=== PATIENT | male | born 1970 | race Hispanic/Latino ===

== ENCOUNTER 2018-01-11 14:45 | Emergency (ER) | payer OTHER ==
[~2018-01-11] VITALS: Ht 175.3 cm; Wt 91.6 kg
[~2018-01-11 14:45] MED LIST: ATORVASTATIN CA20 MG PO; LISINOPRIL10 MG PO; METFORMIN HCL1000 MG PO; PROTONIX40 MG PO; TASIGNA150 MG PO
[2018-01-11] MEDS ORDERED: PROMETHAZINE HC25 M1 PO (15:03)
[2018-01-11] MEDS ORDERED: CIPROFLOXACIN500 M1 PO (15:03)
[2018-01-11 16:01] LABS: BASOPHILS # (AUTO) 0.1 (0.0-0.1); BASOPHILS % 0.9 % (0.0-1.0); EOSINOPHILS # (AUTO) 0.1 (0.0-0.4); EOSINOPHILS % 2.3 % (0.0-6.0); HEMATOCRIT 41.2 % (38.2-49.6); HEMOGLOBIN 14.4 g/dL (14.0-18.0); LYMPHOCYTES # (AUTO) 0.8 (1.0-3.2); LYMPHOCYTES % 14.6 % (18.0-39.1); MEAN CORPUSCULAR VOLUME 94.5 fL (81-99); MONOCYTES # (AUTO) 0.8 (0.2-0.8); NEUTROPHILS % 68.7 % (38.7-80.0); PLATELET COUNT 269 x10e3/uL (140-360); RED BLOOD COUNT 4.36 x10e6/uL (4.3-5.7); RED CELL DISTRIBUTION WIDTH 13.2 % (11.7-14.4)
[2018-01-11 17:32] LABS: INR 0.89; PROTHROMBIN TIME 12.9 seconds (11.9-14.5)
[2018-01-11 17:33] LABS: PARTIAL THROMBOPLASTIN TIME 28.1 seconds (23.8-35.5)
[2018-01-11 17:42] LABS: ALANINE AMINOTRANSFERASE 134 IU/L (0-55); ALBUMIN 4.3 g/dL (3.5-5.0); ALBUMIN/GLOBULIN RATIO 1.4 (0.8-2.0); ALKALINE PHOSPHATASE 77 IU/L (40-150); ANION GAP 19.1 mmol/L (8-16); BLOOD UREA NITROGEN 19 mg/dL (7-26); BUN/CREATININE RATIO 16 (6-25); CALCIUM 9.4 mg/dL (8.4-10.2); CARBON DIOXIDE 16 mmol/L (22-29); CHLORIDE 109 mmol/L (98-107); CREATININE, SERUM 1.16 mg/dL (0.72-1.25); EST GLOMERULAR FILTRATION RATE > 60 ML/MIN (60-); GLUCOSE 97 mg/dL (74-118); LIPASE 28 U/L (8-78); POTASSIUM 4.1 mmol/L (3.5-5.1); SODIUM 140 mmol/L (136-145)
--- OUTSIDE RECORDS SUMMARY | 2018-01-12 14:23 | XMS REPORT ---
Author Author [facility] Address Unknown Phone Unavailable Care Team Providers Care [employer] Developer Name Role Phone Susan MUÑOZ Unavailable Unavailable Problems This patient has no known problems. Allergies, Adverse Reactions, Alerts This patient has no known allergies or adverse reactions. Medications This patient has no known medications. Encounters Start Date/Time End Date/Time Encounter Type Admission Type Attending [facility] Facility Care Department Encounter ID 2018-01-27 00:00:00 2018-01-27 00:00:00 Outpatient [facility] [id number] 2018-01-27 00:00:00 2018-01-27 00:00:00 Outpatient [facility] [id number] 2018-01-21 00:00:00 2018-01-21 00:00:00 Outpatient [facility] [id number] 2018-01-20 00:00:00 2018-01-20 00:00:00 Outpatient [facility] [id number] 2017-12-28 00:00:00 2017-12-28 00:00:00 Outpatient [facility] [id number] 2017-10-29 08:59:47 2017-10-29 08:59:47 Outpatient [facility] [id number] 2017-10-28 14:11:02 2017-10-28 14:11:02 Outpatient [facility] [id number] 2017-10-28 13:45:27 2017-10-28 13:45:27 Outpatient [facility] [id number] 2017-10-05 00:00:00 2017-10-05 00:00:00 Outpatient [facility] [id number] 2017-10-05 00:00:00 2017-10-05 00:00:00 Outpatient [facility] [id number] 2017-10-05 00:00:00 2017-10-05 00:00:00 Outpatient [facility] [id number] 2017-10-05 00:00:00 2017-10-05 00:00:00 Outpatient [facility] [id number] 2017-09-07 00:00:00 2017-09-07 00:00:00 Outpatient [facility] [id number] 2017-09-02 00:00:00 2017-09-02 00:00:00 Outpatient [facility] [id number] 2017-08-31 00:00:00 2017-08-31 00:00:00 Outpatient [facility] [id number] 2017-07-27 13:58:33 2017-07-27 13:58:33 Outpatient [facility] [id number] 2017-07-27 00:00:00 2017-07-27 00:00:00 Outpatient [facility] [id number] 2017-07-27 00:00:00 2017-07-27 00:00:00 Outpatient [facility] [id number] 2017-07-23 08:40:16 2017-07-23 08:40:16 Outpatient [facility] [id number] 2017-07-21 12:31:56 2017-07-21 12:31:56 Outpatient [facility] [id number] 2017-07-21 12:24:41 2017-07-21 12:24:41 Outpatient [facility] [id number] 2017-07-20 00:00:00 2017-07-20 00:00:00 Outpatient [facility] [id number] 2017-07-13 15:57:31 2017-07-13 15:57:31 Outpatient [facility] [id number] 2017-07-13 10:33:27 2017-07-13 10:33:27 Outpatient [facility] [id number] 2017-07-13 07:19:40 2017-07-13 07:19:40 Outpatient [facility] [id number] 2017-06-08 14:30:08 2017-06-08 14:30:08 Outpatient [facility] [id number] 2017-06-08 13:18:35 2017-06-08 13:18:35 Outpatient [facility] [id number] 2017-06-08 11:41:21 2017-06-08 11:41:21 Outpatient [facility] [id number] 2017-04-20 08:57:46 2017-04-20 08:57:46 Outpatient [facility] [id number] 2017-04-20 08:23:17 2017-04-20 08:23:17 Outpatient [facility] [id number] 2017-04-08 20:30:09 2017-04-08 20:30:09 Emergency [facility] [id number] 2017-04-08 13:11:02 2017-04-08 13:11:02 Emergency [facility] [id number] 2017-04-08 07:44:39 2017-04-08 07:44:39 Emergency [facility] [id number] Results Test Description Test Time Test Comments Text Results Atomic Results Result Comments CT BRAIN WO [facility] [address] [address] Patient Name: JODY BELCHER MR #: [id number] : 1970 Age/Sex: 46/M Req #: [id number] Adm Physician: Ordered by: ALEM REMY MD Report #: [id number] Location: ER Room/Bed: Procedure: [id number] CT/CT BRAIN WO Exam Date: 11/30/16 Exam Time: 1924 REPORT STATUS: Signed History: S LEFT SIDE FACIAL WEAKNESS Comparison studies: None Technique: Axial images were obtained from the skull base to the vertex. Coronal and sagittal reconstructions obtained from the axial data. Findings: Scalp/skull: No abnormalities. No fractures, blastic or lytic lesions. Extra-axial spaces: No masses. No fluid collections. Brain sulci: Appropriate for age. Ventricles: Normal in size and configuration. No hydrocephalus. Parenchyma: No abnormal densities. No masses, hemorrhage, acute or chronic cortical vascular insults. Sellar/suprasellar region: No abnormalities Craniocervical junction: Patent foramen magnum. No Chiari one malformation. IMPRESSION: No abnormalities . Signed by: DR Santi Villagran M.D. on 11/30/2016 8:30 PM Dictated By: SANTI SIU MD 29 Transcribed By: LUZ on 11/30/162029 COPY TO: ALEM REMY MD
[2018-01-13] MEDS ORDERED: CARAFATE1 GM/10 ML PO (12:02)
[2018-01-13] MEDS ORDERED: DEXILANT60 MG PO (12:17)
== END 2018-01-11 18:45 | disposition home or self-care (01) ==
LOC: ER 14:45
DX: R10.13 Epigastric pain (principal); I10 Essential (primary) hypertension; E11.9 Type 2 diabetes mellitus without complications; Z85.6 Personal history of leukemia
CPT/HCPCS: 36415; 80053; 83690; 85025; 85610; 85730; 86850; 86900; 99283

== ENCOUNTER → 2018-01-16 | Day surgery (SDC) | payer OTHER ==
[2018-01-13 12:12] LABS: BASOPHILS % 0.3 % (0.0-1.0); EOSINOPHILS # (AUTO) 0.1 (0.0-0.4); EOSINOPHILS % 1.5 % (0.0-6.0); HEMATOCRIT 43.8 % (38.2-49.6); HEMOGLOBIN 15.2 g/dL (14.0-18.0); LYMPHOCYTES # (AUTO) 0.8 (1.0-3.2); LYMPHOCYTES % 14.1 % (18.0-39.1); MEAN CORPUSCULAR HGB CONC 34.7 g/dL (31-35); MEAN CORPUSCULAR VOLUME 92.2 fL (81-99); MONOCYTES # (AUTO) 0.8 (0.2-0.8); MONOCYTES % 13.9 % (4.4-11.3); NEUTROPHILS # (AUTO) 4.1 (2.1-6.9); NEUTROPHILS % 69.5 % (38.7-80.0); PLATELET COUNT 274 x10e3/uL (140-360); RED BLOOD COUNT 4.75 x10e6/uL (4.3-5.7)
[~2018-01-16] MED LIST changes: +CARAFATE1 GM/10 ML PO; +CIPROFLOXACIN500 M1 PO; +DEXILANT60 MG PO; +FENTANYL CITRATE/PF 100MCG/2 ML INJ ONE; +KETAMINE HCL INJ 50 MG/ML 10 ML VIAL ONE; +LIDOCAINE HCL 2% LOCAL INJ 5 ML SDV VIAL INJ ONE; +MIDAZOLAM HCL 2 MG/2 ML VIAL ONE; +PROMETHAZINE HC25 M1 PO; +PROPOFOL IV EMULSION 10 MG/ML 50 ML VIAL ONE
--- NOTE | 2018-01-16 18:56 | Operative Report ---
DATE OF PROCEDURE: January 16, 2018 REFERRING PHYSICIAN: Dr. Archana Westbrook. PROCEDURE PERFORMED: Esophagogastroduodenoscopy with biopsies. INDICATIONS FOR EGD: Upper abdominal pain, worse postprandially, history of follicular lymphoma. MEDICATION: Patient was done under MAC. Please see anesthesiologist's note. PROCEDURE: With the patient in left lateral decubitus position, a flexible fiberoptic Olympus gastroscope was introduced into the esophagus under direct visualization without any difficulty. There was some patchy erythema noted in the distal esophagus. The scope was then advanced with ease into the stomach, and there was some minimal focal nodularity noted in the upper body of the stomach, and that was biopsied. Mucosa overlying the antrum revealed some patchy intense erythema and low grade to moderate edema, and biopsies were obtained and sent to stain for H. pylori. Pylorus appeared to be of normal contour and shape. It was intubated with ease, and the scope was advanced all the way to the second portion of the duodenum. The scope was then withdrawn slowly. Mucosa overlying the proximal second portion and the duodenal bulb appeared to be within normal limits. The scope was then withdrawn back into the stomach and retroflexed, and mucosa overlying the fundus and the cardia appeared to be within normal limits. The scope was then straightened out. The stomach was decompressed. Scope was subsequently withdrawn. Patient tolerated the procedure well. IMPRESSION 1. Distal esophagitis. 2. Minimal focal nodularity, upper body, biopsied. 3. Gastritis, biopsied. Biopsies sent to stain for Helicobacter pylori. PLAN: Follow up histology. Continue Dexilant 60 mg 1 p.o. q.a.m. a.c. Add Carafate 1 gram p.o. a.c. t.i.d. and q.h.s. Job#: [id number] [facility] cc:DR. ARCHANA WESTBROOK
== END | disposition home or self-care (01) ==
LOC: OR 13:29
PROVIDERS: ATTEND Internal Medicine Gastroenterology
DX: K21.0 Gastro-esophageal reflux disease with esophagitis (principal); K29.50 Unspecified chronic gastritis without bleeding; K31.7 Polyp of stomach and duodenum; C82.90 Follicular lymphoma, unspecified, unspecified site; R14.2 Eructation; I25.10 Atherosclerotic heart disease of native coronary artery without angina pectoris; I25.2 Old myocardial infarction; E11.22 Type 2 diabetes mellitus with diabetic chronic kidney disease; I12.9 Hypertensive chronic kidney disease with stage 1 through stage 4 chronic kidney disease, or unspecified chronic kidney disease; N18.9 Chronic kidney disease, unspecified; R10.13 Epigastric pain; R11.0 Nausea; Z79.84 Long term (current) use of oral hypoglycemic drugs; Z01.810 Encounter for preprocedural cardiovascular examination; Z01.812 Encounter for preprocedural laboratory examination
CPT/HCPCS: 36415 ×2; 43239; 82948; 85025; 93005; J2001; J2250

== ENCOUNTER 2018-05-19 11:11 | Inpatient (IN) | payer OTHER ==
[~2018-05-19] VITALS: Ht 175.3 cm; Wt 89.4 kg
[~2018-05-19 11:11] MED LIST changes: -FENTANYL CITRATE/PF 100MCG/2 ML INJ ONE; -KETAMINE HCL INJ 50 MG/ML 10 ML VIAL ONE; -LIDOCAINE HCL 2% LOCAL INJ 5 ML SDV VIAL INJ ONE; -MIDAZOLAM HCL 2 MG/2 ML VIAL ONE; -PROPOFOL IV EMULSION 10 MG/ML 50 ML VIAL ONE
[2018-05-19] MEDS ORDERED: SODIUM CHLORIDE 0.9% 1000ML 1,000 ML IV STA (11:20)
[2018-05-19] MEDS ORDERED: MORPHINE SULFATE INJ 4 MG/ML INJ 1ML IV STA (11:20)
[2018-05-19] MEDS ORDERED: ONDANSETRON HCL INJ 2MG/ML 2ML 2 MG/ML VIAL IV STA (11:20)
[2018-05-19 12:25] LABS: BASOPHILS # (AUTO) 0.1 (0.0-0.1); BASOPHILS % 0.5 % (0.0-1.0); EOSINOPHILS # (AUTO) 0.1 (0.0-0.4); EOSINOPHILS % 1.3 % (0.0-6.0); HEMATOCRIT 39.3 % (38.2-49.6); HEMOGLOBIN 13.7 g/dL (14.0-18.0); LYMPHOCYTES # (AUTO) 0.9 (1.0-3.2); MEAN CORPUSCULAR HEMOGLOBIN 31.4 pg (28-32); MEAN CORPUSCULAR HGB CONC 34.9 g/dL (31-35); MEAN CORPUSCULAR VOLUME 90.1 fL (81-99); MONOCYTES % 9.8 % (4.4-11.3); NEUTROPHILS # (AUTO) 7.8 (2.1-6.9); NEUTROPHILS % 78.8 % (38.7-80.0); PLATELET COUNT 342 x10e3/uL (140-360); RED BLOOD COUNT 4.36 x10e6/uL (4.3-5.7); RED CELL DISTRIBUTION WIDTH 12.6 % (11.7-14.4)
--- NOTE | 2018-05-19 12:30 | NUR ---
RADIOLOGY AT BEDSIDE FOR CXR AT THIS TIME.
[2018-05-19 12:37] LABS: INR 0.87; PROTHROMBIN TIME 12.7 seconds (11.9-14.5)
[2018-05-19 12:38] LABS: PARTIAL THROMBOPLASTIN TIME 32.8 seconds (23.8-35.5)
[2018-05-19 12:42] LABS: CLARITY,URINE SL CLOUDY (CLEAR); COLOR,URINE AMBER (YELLOW)
[2018-05-19 12:43] LABS: BILIRUBIN,URINE NEGATIVE (NEGATIVE); KETONES,URINE TRACE (NEGATIVE); LEUKOCYTE ESTERASE ,URINE NEGATIVE (NEGATIVE); NITRITE,URINE NEGATIVE (NEGATIVE); PROTEIN,URINE DIPSTICK 1+ (NEGATIVE); URINE UROBILINOGEN 0.2 mg/dL (0.2 - 1)
[2018-05-19 12:44] LABS: ALBUMIN/GLOBULIN RATIO 1.1 (0.8-2.0); ANION GAP 16.1 mmol/L (8-16); CALCIUM 9.8 mg/dL (8.4-10.2); CREATININE, SERUM 1.47 mg/dL (0.72-1.25); POTASSIUM 4.1 mmol/L (3.5-5.1)
[2018-05-19 12:48] LABS: RBC,URINE 0-5 /HPF (0-5)
[2018-05-19 12:49] LABS: BACTERIA,URINE RARE /HPF; EPITHELIAL CELLS,URINE RARE /LPF; MUCUS,URINE FEW (RARE)
[2018-05-19 12:51] LABS: CREATINE KINASE MB 1.4 ng/mL (0-5.0)
--- NOTE | 2018-05-19 13:12 | Diagnostic Imaging Report ---
EXAM: CHEST SINGLE (PORTABLE), AP Portable DATE: 05/19/2018 Time stamp on exam: 12:29 PM INDICATION: Pain COMPARISON: None FINDINGS: LINES/TUBES: None LUNGS: No consolidations or edema. PLEURA: No effusions or pneumothorax. HEART AND MEDIASTINUM: Heart is prominent without evidence of decompensation. Elevated right hemidiaphragm. BONES AND SOFT TISSUES: No acute findings. IMPRESSION: 1. Cardiac enlargement without evidence of decompensation. 2. Elevated right hemidiaphragm. Signed by: Dr. Simeon Bradford DO on 05/19/2018 1:09 PM
--- NOTE | 2018-05-19 15:00 | NUR ---
Pt disconnected from monitors to go to BR. Steady gait to BR at this time.
--- NOTE | 2018-05-19 15:11 | Diagnostic Imaging Report ---
EXAM: CT ABDOMEN AND PELVIS with IV CONTRAST DATE: 05/19/2018 Time stamp on Exam: 1:43 PM INDICATION: Abdominal epigastric pain; history of lymphoma/leukemia COMPARISON: None TECHNIQUE: The abdomen and pelvis were scanned using a multidetector helical scanner. Coronal and sagittal reformations were obtained. Low-dose protocol performed. IV Contrast: 100 cc of Isovue 370 Oral Contrast: Water Radiation Dose: Total DLP 678.72 mGy*cm Estimated effective dose: DLP x 0.015 x size factor FINDINGS: LOWER THORAX: No consolidations LIVER: Fatty infiltration of the liver without focal mass. BILIARY: The gallbladder is unremarkable. No ductal dilatation. SPLEEN: No masses PANCREAS: Mild stranding around the pancreatic head and body. ADRENALS: No nodules KIDNEYS: Symmetric perfusion. No enhancing masses. No hydronephrosis. GI TRACT: No distention, wall thickening or evidence of obstruction. Sigmoid colon diverticula without evidence of diverticulitis. VESSELS: Unremarkable PERITONEUM/RETROPERITONEUM: There is mesenteric fat stranding inferior to the transverse colon. LYMPH NODES: Left periaortic adenopathy measures 4.2 x 2.1 cm situated below the level of the left kidney. There is also some periaortic thickening in the aortocaval interval measuring 1.7 cm. Adenopathy appears to surround the proximal portion of the inferior mesenteric artery. Separate lymph node measuring 12 mm lies anterior to the IVC. There is also a lymph node measuring 1.2 cm situated superior to the periaortic left-sided lymphadenopathy between the aorta and the lower portion of the left kidney. REPRODUCTIVE ORGANS: Unremarkable BLADDER: Unremarkable SOFT TISSUES: Unremarkable BONES: Postoperative changes with a right-sided hemilaminectomy at L4 and L5. The space narrowing at L5-S1. IMPRESSION: 1. Stranding around the pancreatic body and head may reflect early changes of pancreatitis-please correlate with laboratory parameters. 2. Diffuse mesenteric stranding is nonspecific but can be seen in lymphoma. 3. Periaortic and retroperitoneal lymphadenopathy suspicious for recurrence of lymphoma. 4. Fatty infiltration of the liver. Signed by: Dr. Simeon Bradford DO on 05/19/2018 3:07 PM
[2018-05-19] MEDS ORDERED: IOPAMIDOL 370 MG/ML 200 ML INFUS..BTL INJ ONE (15:36)
[2018-05-19] MEDS ORDERED: SODIUM CHLORIDE 0.9% 50ML 50 ML ONE (15:36)
[2018-05-19] MEDS ORDERED: SODIUM CHLORIDE 0.9% 1000ML 1,000 ML IV SCH (15:45)
[2018-05-19] MEDS ORDERED: ONDANSETRON HCL INJ 2MG/ML 2ML 2 MG/ML VIAL IV PRN (15:45)
[2018-05-19] MEDS ORDERED: HYDROMORPHONE 1MG/1ML INJ IV PRN (15:45)
[2018-05-19] MEDS ORDERED: DEXTROSE 50% SYRINGE 50 ML IV PRN (15:45)
[2018-05-19] MEDS ORDERED: HYDROMORPHONE 1MG/1ML INJ IV STA (15:50)
[2018-05-19] MEDS ORDERED: PROMETHAZINE HCL 25 MG TAB PO PRN (16:15)
[2018-05-19] MEDS ORDERED: ACETAMINOPHEN 325 MG TAB PO PRN (16:15)
[2018-05-19] MEDS ORDERED: HYDROMORPHONE 2MG/ML 2 MG/ML ML IV ONE (16:15)
[2018-05-19] MEDS ORDERED: DEXTROSE 5%/0.9% SOD CHL 1,000 ML IV SCH (16:30)
[2018-05-19] MEDS ORDERED: HYDRALAZINE HCL 20 MG/ML VIAL IV PRN (16:30)
[2018-05-19] MEDS: INSULIN REGULAR, HUMAN 100 UNIT/1 ML 3ML VIAL SQ SCH ×2 (18:03→21:00)
[2018-05-19] MEDS ORDERED: SUCRALFATE1 GM PO (18:19)
--- NOTE | 2018-05-19 19:08 | NUR ---
RECD PT FROM ER VIA W/C AAOX3,IV INFUSING TO LT AC 20 GAUGE,DENIES PAIN,CALL SALINAS IN REACH,HOB ELEVATED.
[2018-05-19 20:00] VITALS: BP 146/92
--- NOTE | 2018-05-19 20:55 | NUR ---
RECEIVE DPT IN BED AOX3 .[place] SPEAKING .RESPIRATIONS ARE EVEN AND UNLABORED .ASSESSMENT DONE FAMILY AT THE BEDSIDE .DENIES PAIN .CALL LIGHT WITH IN REACH .CONTINUE TO MONITOR
[2018-05-19] MEDS: HYDROMORPHONE 2MG/ML 2 MG/ML ML IV PRN (22:30)
[2018-05-19 22:56] VITALS: BP 146/92
[2018-05-20] VITALS (9 sets, daily range): BP systolic 119–146; BP diastolic 76–93
--- NOTE | 2018-05-20 00:46 | History and Physical ---
HISTORY OF PRESENT ILLNESS: A 48-year-old male with past medical history positive for hypertension, diabetes, recently diagnosed with gastritis by endoscopy, came to the hospital complaining of abdominal pain. He was found to have acute pancreatitis. REVIEW OF SYSTEMS: CARDIOVASCULAR: No chest pain or palpitation. RESPIRATORY: No shortness of breath. No cough. GASTROINTESTINAL: The patient had epigastric pain radiated to the flank. GENITOURINARY: No frequency. No dysuria. ALLERGIES: HE IS NOT ALLERGIC TO ANY MEDICATIONS. SOCIAL HISTORY: He denies smoking or drinking. PAST MEDICAL HISTORY: Hypertension, diabetes, and gastritis. PHYSICAL EXAMINATION: HEART: Showed regular rhythm. No murmur or added sound. LUNGS: Clear bilaterally. ABDOMEN: Soft. Minimal epigastric and this upper quadrant tenderness. EXTREMITIES: Show no evidence of cyanosis or hematoma. VITAL SIGNS: Blood pressure 148/86, temperature , heart rate 98 per minute, respiratory rate 18 per minute, and oxygen saturation 100%. LABORATORY DATA: On blood work, we have CMP with sodium of 134, potassium 4.1, chloride 102, CO2 of 20, anion gap 16.1, BUN 19, creatinine 1.47, GFR of 51, glucose 125, and calcium 9.8. Total bilirubin 1.1, AST 29, and ALT is elevated at 66. Creatinine kinase 68 . Troponin 0.006. Total protein is 7.5. Albumin 4.0, globulin 3.5, amylase 284, and lipase is 577. On CBC; white blood count is 9.95, hemoglobin is 13.7, hematocrit 39.3, and platelet count 642,000. On the coagulation profile; PT is 12.7, INR 0.87, and PTT 32.8. Urine showed marivel color, clarity is cloudy, specific gravity 1.030, total protein 1+, glucose 1+, ketones trace, and blood trace. On the CT of the abdomen and pelvis, the final report on CT of the abdomen is trending around the pancreatic body and here may reflect early changes of pancreatitis, which correlates with laboratory parameters. Diffuse mesenteric stranding is nonspecific where it can be seen in lymphoma. Periaortic and retroperitoneal lymphadenopathy suspicion for recurrence of lymphoma or fatty infiltration of the liver. On the chest x-ray, cardiac enlargement without . IMPRESSION: 1. Acute pancreatitis. 2. Elevated LFTs. 3. Uncontrolled diabetes mellitus type 2 with chronic renal insufficiency. 4. Gastritis. 5. . PLAN OF TREATMENT: Normal saline at 125 mL an hour. Continue Tylenol 325 mg q.4 hours as needed for pain or fever as needed for severe pain. Continue Protonix 40 mg daily. Continue Zofran 4 mg every 4 hours as needed for nausea. Continue to monitoring the sugar a.c. and h.s. Dr. Caputo for the lymphadenopathy of the abdomen. I am going to repeat CMP, lipase, and CBC tomorrow. Diet going to be n.p.o. Continue MD JAKOB Huff/ZANE /[id number]
[2018-05-20] MEDS: DEXTROSE 5%/0.9% SOD CHL 1,000 ML IV SCH ×6 (01:33→18:48)
--- NOTE | 2018-05-20 03:32 | Consultation ---
DATE OF CONSULTATION: 05/19/2018 CONSULTING PHYSICIAN: Paulino Caputo MD, Hematology-Oncology Service. REASON FOR CONSULTATION: Evaluation and management of patient with history of lymphoma, admitted due to abdominal pain. HISTORY OF PRESENT ILLNESS: Mr. Daily is a very pleasant 48-year-old gentleman with multiple medical problems, including known history of diabetes mellitus, hypertension, hyperlipidemia, history of GI bleed, and history of chronic myelocytic leukemia as well as follicular lymphoma, presented to the Emergency Department due to epigastric pain. The patient underwent workup, including laboratory data revealing markedly elevated lipase and amylase, suspected of acute pancreatitis. Laboratory workup also revealed acute renal insufficiency with an elevated creatinine of 1.4. CT scan was performed revealing stranding around the pancreatic body and head, reflecting early changes of pancreatitis. CT also demonstrated diffuse mesenteric stranding as well as periaortic and retroperitoneal lymphadenopathy suspicious for recurrence of lymphoma. After admission to the inpatient floor, Hematology-Oncology has been consulted to assist with the management. Presently, the patient is lying comfortably, not in acute distress, breathing normally, still having mild discomfort in the abdomen. He does not speak Gibraltarian, so most of the history is obtained with the help of telephonic branch billing payroll clerk as well as calling his . PAST MEDICAL HISTORY: 1. Chronic myelogenous leukemia, diagnosed in 2006, presently on Tasigna. 2. Follicular lymphoma, status post systemic chemotherapy with R-CHOP and presently on maintenance rituximab. 3. Hypertension. 4. Hyperlipidemia. 5. Diabetes mellitus. 6. History of GI bleed. PAST SURGICAL HISTORY: 1. Bone marrow aspiration biopsy. 2. Port placement. SOCIAL HISTORY: He denies history of smoking, alcohol use, or illicit drug use. FAMILY HISTORY: Noncontributory. ALLERGIES: NO KNOWN DRUG ALLERGIES. CURRENT MEDICATIONS: Reviewed and as per electronic medical record. REVIEW OF SYSTEMS: A 14-point review of systems is negative, except as mentioned in history of present illness. PHYSICAL EXAMINATION: VITAL SIGNS: Reviewed and as per electronic medical record. HEENT: PERRLA. Extraocular movements intact. Head is atraumatic and normocephalic. NECK: Supple. CVS: S1, S2 audible. RESPIRATORY: Clear. Bilateral air entry. ABDOMEN: Soft. Positive bowel sounds. EXTREMITIES: Move NEUROLOGIC: The patient is alert, awake, and poor historian. LABORATORY DATA: White blood cell count of 9.9, hemoglobin 13.7, hematocrit 39.3, and platelets 342. BUN 19, creatinine 1.4, amylase 284, and lipase 577. RADIOGRAPHIC DATA: Reviewed and as per EMR. ASSESSMENT AND PLAN: Mr. Daily is a very pleasant 48-year-old gentleman with complicated past medical history, including known history of hypertension, diabetes mellitus, hyperlipidemia, and known diagnosis of chronic myelogenous leukemia as well as follicular lymphoma, presently on maintenance rituximab as well as Tasigna. He has been presented to the Emergency Department due to epigastric pain and subsequently diagnosed with acute pancreatitis. Hematology-Oncology has been consulted due to concern of recurrence of lymphoma. I have reviewed the record and discussed at length with the patient and his about his current disease status with the help of telephonic interpretation. Overall from Hematology-Oncology standpoint, it appears that the patient is well diagnosed with chronic myelogenous leukemia and presently, his count has been stable while he is on Tasigna. He also was diagnosed with follicular lymphoma with intra-abdominal lymphadenopathy, subsequently treated with R-CHOP regimen followed by maintenance rituximab, which he has been receiving on every 3-month basis. At this point from Hematology-Oncology standpoint, the patient is stable. Lymphadenopathy in the abdomen could be recurrent, but no scan available to compare. Recommendation will be to continue treatment for the pancreatitis and epigastric pain. Once symptoms resolve, he probably will need outpatient followup and PET-CT scan. 1. Epigastric pain/pancreatitis: IV hydration, bowel rest, and supportive care. 2. Chronic myelogenous leukemia: The patient has been on Tasigna; however, we would recommend to hold the treatment for now. 3. Follicular lymphoma/non-Hodgkin lymphoma: The patient has been treated with R-CHOP and presently on rituximab therapy. At this point, recommendation would be to closely monitor. No immediate hematologic intervention needed. The patient requires re-staging PET-CT scan in an outpatient setting. Thank you Dr. Wray for the consult. I will continue to be available. Please call with question. Paulino Caputo MD IJ/MODL /[id number] cc: MD Matthieu Huff MD [facility]
[2018-05-20 06:07] LABS: BASOPHILS % 0.3 % (0.0-1.0); EOSINOPHILS # (AUTO) 0.2 (0.0-0.4); EOSINOPHILS % 2.4 % (0.0-6.0); HEMATOCRIT 36.6 % (38.2-49.6); HEMOGLOBIN 12.5 g/dL (14.0-18.0); LYMPHOCYTES # (AUTO) 0.5 (1.0-3.2); LYMPHOCYTES % 6.7 % (18.0-39.1); MEAN CORPUSCULAR HEMOGLOBIN 31.4 pg (28-32); MEAN CORPUSCULAR HGB CONC 34.2 g/dL (31-35); MONOCYTES % 14.8 % (4.4-11.3); NEUTROPHILS # (AUTO) 5.2 (2.1-6.9); NEUTROPHILS % 75.1 % (38.7-80.0); PLATELET COUNT 299 x10e3/uL (140-360); RED BLOOD COUNT 3.98 x10e6/uL (4.3-5.7); RED CELL DISTRIBUTION WIDTH 12.6 % (11.7-14.4)
[2018-05-20 06:43] LABS: ALANINE AMINOTRANSFERASE 52 IU/L (0-55); ALBUMIN 3.3 g/dL (3.5-5.0); ALBUMIN/GLOBULIN RATIO 0.9 (0.8-2.0); ALKALINE PHOSPHATASE 55 IU/L (40-150); AMYLASE 113 U/L (25-125); ANION GAP 10.7 mmol/L (8-16); BLOOD UREA NITROGEN 12 mg/dL (7-26); BUN/CREATININE RATIO 11 (6-25); CALCIUM 8.4 mg/dL (8.4-10.2); CARBON DIOXIDE 22 mmol/L (22-29); CHLORIDE 104 mmol/L (98-107); CREATININE, SERUM 1.13 mg/dL (0.72-1.25); EST GLOMERULAR FILTRATION RATE > 60 ML/MIN (60-); GLUCOSE 141 mg/dL (74-118); LIPASE 208 U/L (8-78); POTASSIUM 3.7 mmol/L (3.5-5.1); SODIUM 133 mmol/L (136-145)
--- NOTE | 2018-05-20 06:43 | NUR ---
PT RESTING .C/O PAIN AND GIVEN ORDERED PAIN MEDICATION.CALL LIGHT WITH IN REACH .CONTINUE TO MONITOR
--- NOTE | 2018-05-20 07:20 | NUR ---
REPORT GIVEN TO THE ONCOMING NURSE
[2018-05-20] MEDS: INSULIN REGULAR, HUMAN 100 UNIT/1 ML 3ML VIAL SQ SCH ×4 (07:30→21:00)
--- NOTE | 2018-05-20 07:49 | NUR ---
Patient has fever of 100.4. No administration of Tylenol due to parameters.
[2018-05-20] MEDS: PANTOPRAZOLE 40 MG 10ML VIAL IV SCH (08:49)
[2018-05-20] MEDS: HYDROMORPHONE 2MG/ML 2 MG/ML ML IV PRN ×3 (08:49→23:42)
[2018-05-20] MEDS ORDERED: PANTOPRAZOLE SOD 40 MG TABEC PO SCH (09:00)
--- NOTE | 2018-05-20 14:53 | Progress Note ---
DATE: 05/20/2018 ADDENDUM The patient was diagnosed with CML and follicular lymphoma. Dr. Caputo was consulted for Hematology who has seen the patient. He will have a workup as an outpatient. MD JAKOB Huff/ZANE /[id number]
--- NOTE | 2018-05-20 16:18 | Progress Note ---
DATE: 05/20/2018 Internal Medicine Progress Note SUBJECTIVE: The patient is doing better. PHYSICAL EXAMINATION: VITAL SIGNS: Blood pressure 142/89, temperature 100.4, heart rate 86 per minute, respiratory rate 18 per minute, oxygen saturation 98%. HEART: Showed regular rhythm. No murmur or added sound. LUNGS: Clear bilaterally. ABDOMEN: Soft. Nontender no visceromegaly. Bowel sounds are decreased. LABORATORY DATA: On BMP, sodium 133, potassium 3.7, chloride 104, CO2 22, BUN 12, creatinine 1.13, glucose 141. On CBC, white blood count 6.97, hemoglobin 12.5, hematocrit 36.6, platelet count . PT 12.7, INR 0.87, and PTT 32.8. AST 26, ALT 62, total bilirubin 1.1, alkaline phosphatase 55. The last lipase is 208, which lower than when he came. FINAL IMPRESSION: 1. Acute pancreatitis. 2. Elevated liver function tests. 3. Uncontrolled diabetes mellitus, type 2. 4. . 5. Hypertension with chronic renal insufficiency. PLAN OF TREATMENT: Continue n.p.o. status, continue IV fluids with D5 normal saline at 250 mL an hour. Continue Zofran 4 mg q.4 hours as needed. Monitor blood sugar q.6 hours. Tylenol 325 mg q.4 hours as needed, Dilaudid 1 mg IV q.4 hours as needed, mg IV q.4 hours as needed. Protonix 40 mg IV daily. is on the case from Gastroenterology. We are going to repeat CMP and lipase level tomorrow. Continue n.p.o. status . BUN and creatinine have improved significantly indicating that most likely the patient might have more or acute renal insufficiency. MD JAKOB Huff/MELODYL /[id number]
--- NOTE | 2018-05-20 19:46 | NUR ---
RECEIVED PT IN BED AOX3 .NO ACUTE DISTRESS NOTED NS IS RUNNING AT 250 ML/HR CALL LIGHT WITH IN REACH .CONTINUE TO MONITOR
[2018-05-21] VITALS (8 sets, daily range): BP systolic 114–137; BP diastolic 66–84
[2018-05-21] MEDS: DEXTROSE 5%/0.9% SOD CHL 1,000 ML IV SCH ×6 (00:45→22:16)
--- NOTE | 2018-05-21 05:24 | NUR ---
PT RESTING .NS IS GOING AT 250MLS/HR.FAMILY AT THE BEDSIDE .CALL LIGHT WITH IN REACH .CONTINUE TO MONITOR
[2018-05-21 06:38] LABS: ALANINE AMINOTRANSFERASE 47 IU/L (0-55); ALBUMIN/GLOBULIN RATIO 0.9 (0.8-2.0); ALKALINE PHOSPHATASE 58 IU/L (40-150); ANION GAP 10.7 mmol/L (8-16); BLOOD UREA NITROGEN 7 mg/dL (7-26); BUN/CREATININE RATIO 7 (6-25); CALCIUM 7.8 mg/dL (8.4-10.2); CARBON DIOXIDE 21 mmol/L (22-29); CHLORIDE 108 mmol/L (98-107); CREATININE, SERUM 1.04 mg/dL (0.72-1.25); EST GLOMERULAR FILTRATION RATE > 60 ML/MIN (60-); GLUCOSE 133 mg/dL (74-118); POTASSIUM 3.7 mmol/L (3.5-5.1); SODIUM 136 mmol/L (136-145)
--- NOTE | 2018-05-21 07:02 | NUR ---
RECEIVED PATIENT RESTING IN BED. RESPIRATIONS EVEN AND UNLABORED. NO ACUTE DISTRESS NOTED. CALL LIGHT WITHIN REACH. BED IN THE LOWEST POSITION.
--- NOTE | 2018-05-21 07:19 | NUR ---
REPORT GIVEN TOT HE ON COMING NURSE
[2018-05-21] MEDS: INSULIN REGULAR, HUMAN 100 UNIT/1 ML 3ML VIAL SQ SCH ×4 (07:30→20:10)
[2018-05-21] MEDS: HYDROMORPHONE 2MG/ML 2 MG/ML ML IV PRN ×3 (07:55→22:21)
[2018-05-21] MEDS: PANTOPRAZOLE 40 MG 10ML VIAL IV SCH (08:00)
--- NOTE | 2018-05-21 15:49 | Progress Note ---
DATE: 05/21/2018 Internal Medicine Progress Note SUBJECTIVE: The patient is doing well. PHYSICAL EXAMINATION: VITAL SIGNS: Blood pressure 129/80, temperature 99 degrees, heart rate 87 per minute, respiratory rate is 19 per minute, oxygen saturation 95%. HEART: Showed regular rhythm. No murmur or added sound. LUNGS: Clear bilaterally. ABDOMEN: Soft. Nontender. No distention. No visceromegaly. EXTREMITIES: Show no edema, cyanosis or hematoma. LABORATORY DATA: BMP with a sodium of 136, potassium of 3.7, chloride 108, CO2 of 21, BUN 7, creatinine 1.04, glucose 133. On the CBC, white blood count 6.97, hemoglobin 12.5, hematocrit 36.6, and platelet count 299,000. PT 12.0, INR 0.87, PTT 32.8. AST 25, ALT 47, total bilirubin 0.9, alkaline phosphatase 58. FINAL IMPRESSION: 1. Acute pancreatitis. 2. Elevated liver function tests. 3. Uncontrolled diabetes mellitus type 2 with renal insufficiency. 4. . 5. Acute renal failure. PLAN OF TREATMENT: Continue n.p.o. Status to see if the lipase is still elevated. Continue IV D5 normal saline at 250 mL and hour. Continue Zofran 4 mg q.4 hours as needed. Continue to monitor blood sugar q.6 hours. Dilaudid 1 mg IV q.4 hours as needed, Tylenol 325 mg q.4 hours as needed. Hydralazine 10 mg IV q.4 hours as needed for hypertension. Protonix 40 mg IV daily. We are going to do another CMP and lipase level tomorrow. Once the lipase is back to normal, the patient can start eating. The last lipase was 103, which is a significant improvement from before, but still elevated. Tentative diet tomorrow as long as the lipase will be covering for me this weekend. MD JAKOB Huff/ZANE /[id number]
--- NOTE | 2018-05-21 17:00 | NUR ---
Nutrition Screen Note RD Recommendation for Physician: -Rec advancing to ADA/ low fat diet as medically appropriate -RD provided education on low fat diet on 05/21. Plan of Care: RD following, monitoring for tolerance and adequacy, diet education Nutrition reason for involvement: Diagnosis Primary Diagnose(s): 1. Acute pancreatitis. 2. Elevated liver function tests. 3. Uncontrolled diabetes mellitus type 2 with renal insufficiency. PMH: DM, HTN Ht: 69in Wt: 197.38lb BMI: 29.1kg/m2 IBW: 160lb RD Assessment: (05/21) Chart reviewed. Labs and meds reviewed. 48yo M, who was admitted for abdominal pain. Lipase has gone down to 103. Visited pt in the room. Pt doesnt speak Tunisian; presented on bedside to translate. Per , pt has had poor PO intake and ~3lbs weight loss for 2 weeks. No physical signs of fat/muscle loss upon NFPA. Pt denied any nausea or vomiting. No chewing or swallowing difficulty noted. LBM 2/20. Currently on IVF, pain management and bowel rest. Pt reported feeling hungry and eager to eat. Anticipate pt able to meet nutritional need through po intake when diet is advanced. Will cont to monitor. Please consult as needed. Current Diet: NPO Malnutrition Evaluation (05/21/2018) The patient does not meet criteria for a specified degree of malnutrition at this time. Will re-evaluate at follow-up as appropriate. Diet Education Needs Assessment: Diet education indicated, pt and agreeable. Learner(s): pt and Time spent: 25mins Barriers: No barriers identified. Cultural/Language Modifications: Only speaks Tunisian. Micronesian version of handout was given. Readiness: Acceptance Method: Handouts, explanation Topics: Pancreatitis nutrition therapy Understanding/Compliance: Expect good understanding/compliance from pt. Will benefit from reinforcement. All questions have been answered. Nutrition Care Level: low Signed: Taylor Ascencio, MS, RD, LD
--- NOTE | 2018-05-21 19:23 | NUR ---
REPORT GIVEN TO ONCOMING NURSE, WALKING ROUNDS DONE. PATIENT IS RESTING IN BED. NO ACUTE DISTRESS NOTED. AT BEDSIDE. CALL LIGHT WITHIN REACH. BED IN THE LOWEST POSITION.
--- NOTE | 2018-05-21 19:25 | NUR ---
PT IS RESTING IN BED. NO RESPIRATORY DISTRESS NOTED. BED IN THE LOWEST POSITION, LOCKED, AND CALL LIGHT WITHIN REACH. WILL CONTINUE TO MONITOR.
[2018-05-22] VITALS (9 sets, daily range): BP systolic 117–130; BP diastolic 68–84
[2018-05-22] MEDS: DEXTROSE 5%/0.9% SOD CHL 1,000 ML IV SCH ×3 (02:16→10:43)
[2018-05-22 06:32] LABS: ALANINE AMINOTRANSFERASE 51 IU/L (0-55); ALBUMIN 2.9 g/dL (3.5-5.0); ALKALINE PHOSPHATASE 52 IU/L (40-150); ANION GAP 9.6 mmol/L (8-16); BLOOD UREA NITROGEN 5 mg/dL (7-26); BUN/CREATININE RATIO 5 (6-25); CALCIUM 7.8 mg/dL (8.4-10.2); CARBON DIOXIDE 23 mmol/L (22-29); CHLORIDE 109 mmol/L (98-107); CREATININE, SERUM 1.04 mg/dL (0.72-1.25); EST GLOMERULAR FILTRATION RATE > 60 ML/MIN (60-); GLUCOSE 136 mg/dL (74-118); POTASSIUM 3.6 mmol/L (3.5-5.1); SODIUM 138 mmol/L (136-145)
--- NOTE | 2018-05-22 07:08 | NUR ---
RECEIVED PATIENT RESTING IN BED. NO ACUTE DISTRESS NOTED. AT BEDSIDE. CALL LIGHT WITHIN REACH. BED IN THE LOWEST POSITION.
[2018-05-22] MEDS: INSULIN REGULAR, HUMAN 100 UNIT/1 ML 3ML VIAL SQ SCH ×4 (07:30→21:00)
[2018-05-22] MEDS: PANTOPRAZOLE 40 MG 10ML VIAL IV SCH (08:32)
--- NOTE | 2018-05-22 19:22 | NUR ---
REPORT GIVEN TO ONCOMING NURSE, WALKING ROUNDS DONE. PATIENT IS RESTING IN BED. RESPIRATIONS EVEN AND UNLABORED, NO ACUTE DISTRESS NOTED. DENIES PAIN OR DISCOMFORT AT THIS TIME. AT BEDSIDE. CALL LIGHT WITHIN REACH. BED IN THE LOWEST POSITION.
[2018-05-23] VITALS: BP 114/59
[2018-05-23 04:00] VITALS: BP 119/57
[2018-05-23 05:35] LABS: BASOPHILS # (AUTO) 0.1 (0.0-0.1); BASOPHILS % 1.1 % (0.0-1.0); EOSINOPHILS # (AUTO) 0.2 (0.0-0.4); HEMATOCRIT 36.7 % (38.2-49.6); HEMOGLOBIN 12.8 g/dL (14.0-18.0); LYMPHOCYTES # (AUTO) 0.9 (1.0-3.2); MEAN CORPUSCULAR HEMOGLOBIN 31.8 pg (28-32); MEAN CORPUSCULAR HGB CONC 34.9 g/dL (31-35); MEAN CORPUSCULAR VOLUME 91.3 fL (81-99); MONOCYTES # (AUTO) 0.7 (0.2-0.8); MONOCYTES % 12.9 % (4.4-11.3); NEUTROPHILS # (AUTO) 3.8 (2.1-6.9); NEUTROPHILS % 66.8 % (38.7-80.0); PLATELET COUNT 320 x10e3/uL (140-360); RED BLOOD COUNT 4.02 x10e6/uL (4.3-5.7); RED CELL DISTRIBUTION WIDTH 12.3 % (11.7-14.4)
[2018-05-23 06:12] LABS: ALANINE AMINOTRANSFERASE 62 IU/L (0-55); ALBUMIN 3.3 g/dL (3.5-5.0); ALKALINE PHOSPHATASE 60 IU/L (40-150); AMYLASE 55 U/L (25-125); ANION GAP 11.9 mmol/L (8-16); BLOOD UREA NITROGEN 6 mg/dL (7-26); BUN/CREATININE RATIO 5 (6-25); CALCIUM 8.6 mg/dL (8.4-10.2); CARBON DIOXIDE 22 mmol/L (22-29); CHLORIDE 109 mmol/L (98-107); CREATININE, SERUM 1.17 mg/dL (0.72-1.25); EST GLOMERULAR FILTRATION RATE > 60 ML/MIN (60-); GLUCOSE 99 mg/dL (74-118); LIPASE 48 U/L (8-78); POTASSIUM 3.9 mmol/L (3.5-5.1); SODIUM 139 mmol/L (136-145)
--- NOTE | 2018-05-23 07:02 | NUR ---
RECEIVED PATIENT RESTING IN BED. NO ACUTE DISTRESS NOTED. AT BEDSIDE. CALL LIGHT WITHIN REACH. BED IN THE LOWEST POSITION.
--- NOTE | 2018-05-23 07:06 | NUR ---
Report given to oncoming nurse,walking round done.
[2018-05-23 07:20] VITALS: BP 109/60
[2018-05-23] MEDS: INSULIN REGULAR, HUMAN 100 UNIT/1 ML 3ML VIAL SQ SCH ×2 (07:30→11:30)
[2018-05-23 08:11] VITALS: BP 109/60
[2018-05-23] MEDS: PANTOPRAZOLE 40 MG 10ML VIAL IV SCH (09:13)
[2018-05-23 11:53] VITALS: BP 128/75
--- NOTE | 2018-05-23 14:20 | NUR ---
RECEIVED DC ORDER FROM MD, PATIENT IS IN STABLE CONDITION. IV LINE TO RIGHT AC DC'D WITH TIP INTACT, PRESSURE APPLIED TO SITE, NO BLEEDING NOTED. DISCHARGE TEACHING PROVIDED TO PATIENT AND , THEY BOTH VERBALIZED UNDERSTANDING. DISCHARGE PAPERWORK PLACED ON DC FOLDER. ALL PERSONAL ITEMS ON HAND. PATIENT ACCOMPANIED TO PRIVATE AUTO BY STAFF.
--- NOTE | 2018-05-24 00:15 | Discharge Summary ---
ADMITTING DIAGNOSES: 1. Acute pancreatitis. 2. Chronic myelogenous leukemia, diagnosed in 2006. 3. Follicular lymphoma. 4. Type 2 diabetes mellitus. 5. Hypertension. 6. Hyperlipidemia. 7. Acute renal failure. DISCHARGE DIAGNOSES: 1. Pancreatitis, resolved. 2. Chronic myelogenous leukemia, presently on Tasigna. 3. Follicular lymphoma, status post chemotherapy with R-CHOP and presently on maintenance rituximab. 4. Type 2 diabetes mellitus. 5. Hypertension. 6. Hyperlipidemia. 7. Acute renal failure, resolved. HOSPITAL COURSE: This is a 48-year-old man, who has a history of chronic myelogenous leukemia diagnosed in 2006 as well as follicular lymphoma. The patient is on Tasigna for his chronic myelogenous leukemia and is currently on rituximab for his follicular lymphoma/non-Hodgkin's lymphoma. The patient was admitted to [facility] with diagnosis of acute pancreatitis and acute renal failure. During this hospitalization, the patient's acute renal failure resolved with intravenous fluids. The patient improved clinically from his pancreatitis with supportive care namely intravenous fluids, pain control, and by not taking anything by mouth. The patient was seen by Gastroenterology during this hospitalization namely Dr. Ubaldo Hicks. The patient was also seen by a oncologist during this hospitalization namely Dr. Caputo. The patient's metformin was held during his hospital stay because of acute renal failure. The patient's hospitalization was unremarkable. On admission, his BUN and creatinine were 19 and 1.47 respectively. On the day of discharge, BUN and creatinine were 6 and 1.17 respectively. Also on admission, the patient's amylase and lipase were 24 and 537 respectively. On the day of discharge, amylase and lipase were 55 and 48 respectively. On the day of discharge, the patient was tolerating a regular diet. DISCHARGE MEDICATIONS: 1. Tasigna 300 mg b.i.d. 2. Rituximab as per Oncology. On discharge, the patient was instructed to stop metformin until further notice. The patient is to return for followup with primary care physician namely Dr. Jun Aguilar within the next 7 to 10 days. MD FRANKY Bernstein/ZANE /[id number] GABRIEL
--- NOTE | 2018-05-24 23:36 | Progress Note ---
DATE: 05/23/2018 Followup Note. CHIEF COMPLAINT: The patient with known history of non-Hodgkin lymphoma and leukemia, admitted for pancreatitis. OBJECTIVE: VITAL SIGNS: Reviewed and as per electronic medical record. HEENT: PERRLA. Extraocular movements intact. Head is atraumatic and normocephalic. NECK: Supple. CVS: S1, S2 audible. RESPIRATORY: Clear. Bilateral air entry. ABDOMEN: No cynosis NEUROLOGIC: The patient is alert and awake. ASSESSMENT AND PLAN: 1. The patient is with known history of non-Hodgkin lymphoma, status post R-CHOP and rituximab. Doing okay. 2. Chronic lymphocytic leukemia, stable after Tasigna. 3. The patient admitted due to pancreatitis, improving. Paulino Caputo MD IJ/MODL /[id number] MTDClarke
--- NOTE | 2018-05-24 23:46 | Progress Note ---
DATE: 05/24/2018 Followup Note. CHIEF COMPLAINT: The patient with known history of lymphoma and leukemia, admitted due to acute pancreatitis. OBJECTIVE: VITAL SIGNS: Reviewed and as per electronic medical record. HEENT: PERRLA. Extraocular movements intact. Head is atraumatic and normocephalic. NECK: Supple. CVS: S1, S2 audible. RESPIRATORY: Clear. Bilateral air entry. ABDOMEN: Positive bowel sounds. EXTREMITIES: Moving all extremities. NEUROLOGIC: The patient is alert. LABORATORY DATA: Reviewed. ASSESSMENT AND PLAN: The patient is admitted due to acute pancreatitis, who has known history of non-acute lymphoma as well as leukemia. He has been dealing quite well. No new issues. Paulino Caputo MD IJ/MODL /[id number]
== END 2018-05-23 14:24 | disposition home or self-care (01) | DRG 439 ==
LOC: ER 11:11 → ERHOLD 15:45 → MED/SURG3 18:35 → OBSVTOIN 05-20 11:27
PROVIDERS: ADMIT Internal Medicine; ATTEND Internal Medicine
DX: K85.92 Acute pancreatitis with infected necrosis, unspecified (principal); C82.93 Follicular lymphoma, unspecified, intra-abdominal lymph nodes; C92.10 Chronic myeloid leukemia, BCR/ABL-positive, not having achieved remission; N17.9 Acute kidney failure, unspecified; Z83.3 Family history of diabetes mellitus; E11.65 Type 2 diabetes mellitus with hyperglycemia; E11.22 Type 2 diabetes mellitus with diabetic chronic kidney disease; I12.9 Hypertensive chronic kidney disease with stage 1 through stage 4 chronic kidney disease, or unspecified chronic kidney disease; N18.9 Chronic kidney disease, unspecified; K29.70 Gastritis, unspecified, without bleeding; E78.5 Hyperlipidemia, unspecified
CPT/HCPCS: 36415; 71045; 74177; 80053; 81001; 82150; 82550; 82553; 82948; 83690; 83970; 84478; 84484; 85025; 85610; 85730; 86039; 93005; 99284; G0378; J2270; J2405; J7030; J7042; Q9967

== ENCOUNTER 2023-04-18 11:40 | Inpatient (IN) | payer MEDICARE ==
[~2023-04-18] VITALS: Ht 327.7 cm; Wt 89.4 kg
[~2023-04-18 11:40] MED LIST changes: +ACETAMINOPHEN-1 EAC4 PO; +METRONIDAZOLE500 MG PO; +ONDANSETRON ODT4 MG PO; +PANTOPRAZOLE SO40 MG PO; +SUCRALFATE1 GM PO
[2023-04-18] MEDS ORDERED: ONDANSETRON HCL INJ 2MG/ML 2ML 2 MG/ML VIAL IV STA (12:52)
[2023-04-18] MEDS ORDERED: SODIUM CHLORIDE 0.9% 1000ML 1,000 ML IV STA (12:52)
[2023-04-18] MEDS ORDERED: MAGNESIUM/ALUMINUM/SIMETHICONE 30 ML UDC PO ONE (13:15)
[2023-04-18] MEDS ORDERED: LIDOCAINE VISC 2% SOLN 15 ML UDC PO ONE (13:15)
[2023-04-18] MEDS ORDERED: BELLADONNA ALK/PHENOBARBITAL 5 ML UDC PO ONE (13:15)
[2023-04-18 13:17] LABS: BASOPHILS # (AUTO) 0.1 (0.0-0.1); BASOPHILS % 1.1 % (0.0-1.0); EOSINOPHILS # (AUTO) 0.2 (0.0-0.4); EOSINOPHILS % 1.4 % (0.0-6.0); HEMATOCRIT 47.5 % (38.2-49.6); LYMPHOCYTES # (AUTO) 1.8 (1.0-3.2); LYMPHOCYTES % 16.8 % (18.0-39.1); MEAN CORPUSCULAR HEMOGLOBIN 31.3 pg (28-32); MEAN CORPUSCULAR HGB CONC 33.7 g/dL (31-35); MEAN CORPUSCULAR VOLUME 92.8 fL (81-99); MONOCYTES % 9.5 % (4.4-11.3); NEUTROPHILS # (AUTO) 7.7 (2.1-6.9); NEUTROPHILS % 70.6 % (38.7-80.0); PLATELET COUNT 247 x10e3/uL (140-360); RED BLOOD COUNT 5.12 x10e6/uL (4.3-5.7); RED CELL DISTRIBUTION WIDTH 12.7 % (11.7-14.4); WHITE BLOOD COUNT 10.86 x10e3/uL (4.8-10.8)
[2023-04-18] MEDS ORDERED: IOPAMIDOL 370 MG/ML 100 ML INFUS..BTL INJ ONE (13:25)
[2023-04-18 13:28] LABS: INR 0.95; PROTHROMBIN TIME 12.9 seconds (11.9-14.5)
[2023-04-18 13:38] LABS: ALBUMIN 4.1 g/dL (3.5-5.0); ALBUMIN/GLOBULIN RATIO 0.9 (0.8-2.0); ANION GAP 13.6 mmol/L (8-16); CALCIUM 9.1 mg/dL (8.4-10.2); CREATININE, SERUM 3.23 mg/dL (0.72-1.25); MAGNESIUM 2.4 MG/DL (1.3-2.1); POTASSIUM 3.6 mmol/L (3.5-5.1); TOTAL PROTEIN 8.6 g/dL (6.5-8.1)
[2023-04-18 13:44] LABS: TROPONIN I 0.02 ng/mL (0-0.300)
[2023-04-18 15:27] LABS: BILIRUBIN,URINE NEGATIVE (NEGATIVE); CLARITY,URINE CLEAR (CLEAR); COLOR,URINE YELLOW (YELLOW); GLUCOSE, URINE 500 (NEGATIVE); KETONES,URINE NEGATIVE (NEGATIVE); LEUKOCYTE ESTERASE ,URINE NEGATIVE (NEGATIVE); NITRITE,URINE NEGATIVE (NEGATIVE); PH,URINE 6.5 (5 - 7); PROTEIN,URINE DIPSTICK 2+ (NEGATIVE); URINE UROBILINOGEN 0.2 mg/dL (0.2 - 1)
[2023-04-18 15:42] LABS: AMORPHOUS SEDIMENT,URINE FEW (FEW); BACTERIA,URINE FEW /HPF; EPITHELIAL CELLS,URINE FEW /LPF; RBC,URINE 0-5 /HPF (0-5)
[2023-04-18] MEDS ORDERED: ONDANSETRON HCL INJ 2MG/ML 2ML 2 MG/ML VIAL IV PRN (15:45)
[2023-04-18] MEDS ORDERED: Morphine 2mg Syringe 2 MG/ML SYR IV PRN (15:45)
[2023-04-18] MEDS ORDERED: DEXTROSE 50% SYRINGE 50 ML IV PRN (15:45)
[2023-04-18] MEDS: INSULIN LISPRO 100 UNIT/1 ML 3ML VIAL SQ SCH ×2 (16:30→20:39)
[2023-04-18 17:10] VITALS: BP 134/78; PULSE 70; RESP 20; TEMP 98.1; O2SAT 100
[2023-04-18 17:30] VITALS: BP 134/78; PULSE 70; RESP 20; TEMP 98.1; O2SAT 100
[2023-04-18 17:35] VITALS: BP 134/78; PULSE 70; RESP 20; TEMP 98.4; O2SAT 100
[2023-04-18] MEDS: SODIUM CHLORIDE 0.9% 1000ML 1,000 ML IV SCH ×2 (17:48→22:59)
[2023-04-18] MEDS ORDERED: ASPIRIN EC81 MG PO (19:35)
[2023-04-18] MEDS ORDERED: JARDIANCE25 MG PO (19:35)
[2023-04-18] MEDS ORDERED: ROSUVASTATIN CA40 MG PO (19:35)
[2023-04-18] MEDS ORDERED: GLIPIZIDE ER5 MG PO (19:35)
[2023-04-18] MEDS ORDERED: AMLODIPINE BESYL5 MG PO (19:35)
[2023-04-18 20:00] VITALS: BP 131/78; PULSE 69; RESP 18; TEMP 98.1; O2SAT 100
[2023-04-19] VITALS (8 sets, daily range): BP systolic 129–140; BP diastolic 78–83; PULSE 65–87; RESP 16–20; TEMP 97.8–98.2; O2SAT 98–100
[2023-04-19 06:24] LABS: BASOPHILS # (AUTO) 0.1 (0.0-0.1); BASOPHILS % 0.8 % (0.0-1.0); EOSINOPHILS # (AUTO) 0.2 (0.0-0.4); EOSINOPHILS % 2.2 % (0.0-6.0); HEMATOCRIT 42.9 % (38.2-49.6); HEMOGLOBIN 14.6 g/dL (14.0-18.0); LYMPHOCYTES # (AUTO) 1.7 (1.0-3.2); LYMPHOCYTES % 16.1 % (18.0-39.1); MEAN CORPUSCULAR HEMOGLOBIN 31.5 pg (28-32); MEAN CORPUSCULAR VOLUME 92.7 fL (81-99); MONOCYTES % 9.3 % (4.4-11.3); NEUTROPHILS # (AUTO) 7.5 (2.1-6.9); PLATELET COUNT 223 x10e3/uL (140-360); RED BLOOD COUNT 4.63 x10e6/uL (4.3-5.7); RED CELL DISTRIBUTION WIDTH 12.7 % (11.7-14.4); WHITE BLOOD COUNT 10.59 x10e3/uL (4.8-10.8)
[2023-04-19 07:06] LABS: ALBUMIN 3.6 g/dL (3.5-5.0); ANION GAP 12.5 mmol/L (8-16); CALCIUM 8.3 mg/dL (8.4-10.2); CREATININE, SERUM 2.74 mg/dL (0.72-1.25); POTASSIUM 3.5 mmol/L (3.5-5.1); TOTAL PROTEIN 7.3 g/dL (6.5-8.1)
[2023-04-19 07:14] LABS: TROPONIN I 0.019 ng/mL (0-0.300)
[2023-04-19] MEDS: INSULIN LISPRO 100 UNIT/1 ML 3ML VIAL SQ SCH ×4 (07:30→19:48)
[2023-04-19 07:52] LABS: BILIRUBIN,DIRECT 0.6 mg/dL (0.0-0.5); BILIRUBIN,INDIRECT 1.4 mg/dL (0.3-1.2)
[2023-04-19] MEDS: SODIUM CHLORIDE 0.9% 1000ML 1,000 ML IV SCH ×2 (08:00→20:06)
[2023-04-19] MEDS ORDERED: HYDRALAZINE HCL 20 MG/ML VIAL IV PRN (10:15)
[2023-04-19] MEDS ORDERED: ALBUTEROL/IPRATROPIUM 3 ML NEB NEB PRN (10:15)
[2023-04-19] MEDS ORDERED: ACETAMINOPHEN 325 MG TAB PO PRN (10:15)
[2023-04-19 19:45] LABS: TROPONIN I 0.013 ng/mL (0-0.300)
[2023-04-20] VITALS (10 sets, daily range): BP systolic 121–135; BP diastolic 71–85; PULSE 66–93; RESP 16–20; TEMP 98–98.5; O2SAT 93–100
[2023-04-20 05:59] LABS: BASOPHILS # (AUTO) 0.1 (0.0-0.1); BASOPHILS % 0.7 % (0.0-1.0); EOSINOPHILS # (AUTO) 0.2 (0.0-0.4); EOSINOPHILS % 2.4 % (0.0-6.0); HEMATOCRIT 39.3 % (38.2-49.6); HEMOGLOBIN 13.6 g/dL (14.0-18.0); LYMPHOCYTES # (AUTO) 1.2 (1.0-3.2); LYMPHOCYTES % 14.2 % (18.0-39.1); MEAN CORPUSCULAR HEMOGLOBIN 30.9 pg (28-32); MEAN CORPUSCULAR HGB CONC 34.6 g/dL (31-35); MEAN CORPUSCULAR VOLUME 89.3 fL (81-99); MONOCYTES # (AUTO) 0.8 (0.2-0.8); MONOCYTES % 9.6 % (4.4-11.3); NEUTROPHILS % 72.7 % (38.7-80.0); PLATELET COUNT 198 x10e3/uL (140-360); RED CELL DISTRIBUTION WIDTH 12.5 % (11.7-14.4); WHITE BLOOD COUNT 8.26 x10e3/uL (4.8-10.8)
[2023-04-20 06:40] LABS: TROPONIN I 0.009 ng/mL (0-0.300)
[2023-04-20 06:43] LABS: ALBUMIN 3.5 g/dL (3.5-5.0); ANION GAP 13.4 mmol/L (8-16); CALCIUM 8.5 mg/dL (8.4-10.2); CREATININE, SERUM 2.49 mg/dL (0.72-1.25)
[2023-04-20 06:45] LABS: POTASSIUM 3.4 mmol/L (3.5-5.1)
[2023-04-20 07:14] LABS: PHOSPHORUS 2.4 MG/DL (2.3-4.7)
[2023-04-20] MEDS: INSULIN LISPRO 100 UNIT/1 ML 3ML VIAL SQ SCH ×4 (07:30→21:00)
[2023-04-20] MEDS: SOD CHL 0.45%/POT CHL 20MEQ 1,000 ML IV SCH ×2 (09:29→23:15)
[2023-04-20 15:40] LABS: THYROID STIMULATING HORMONE 2.167 uIU/mL (0.350-4.940)
[2023-04-21] VITALS (10 sets, daily range): BP systolic 117–155; BP diastolic 70–88; PULSE 65–98; RESP 18–20; TEMP 97.8–98.5; O2SAT 95–99
[2023-04-21 05:42] LABS: BASOPHILS # (AUTO) 0.1 (0.0-0.1); BASOPHILS % 1.1 % (0.0-1.0); EOSINOPHILS # (AUTO) 0.2 (0.0-0.4); EOSINOPHILS % 2.3 % (0.0-6.0); HEMATOCRIT 40.3 % (38.2-49.6); HEMOGLOBIN 14.1 g/dL (14.0-18.0); LYMPHOCYTES # (AUTO) 1.1 (1.0-3.2); LYMPHOCYTES % 15.4 % (18.0-39.1); MEAN CORPUSCULAR HEMOGLOBIN 31.1 pg (28-32); MEAN CORPUSCULAR VOLUME 88.8 fL (81-99); MONOCYTES # (AUTO) 0.8 (0.2-0.8); MONOCYTES % 11.1 % (4.4-11.3); NEUTROPHILS # (AUTO) 5.1 (2.1-6.9); NEUTROPHILS % 69.4 % (38.7-80.0); PLATELET COUNT 211 x10e3/uL (140-360); RED BLOOD COUNT 4.54 x10e6/uL (4.3-5.7); RED CELL DISTRIBUTION WIDTH 12.4 % (11.7-14.4)
[2023-04-21 06:17] LABS: ALBUMIN 3.5 g/dL (3.5-5.0); ALBUMIN/GLOBULIN RATIO 1.1 (0.8-2.0); ANION GAP 12.6 mmol/L (8-16); BILIRUBIN,TOTAL 1.4 mg/dL (0.2-1.2); CALCIUM 8.5 mg/dL (8.4-10.2); CREATININE, SERUM 2.57 mg/dL (0.72-1.25); POTASSIUM 3.6 mmol/L (3.5-5.1); TOTAL PROTEIN 6.8 g/dL (6.5-8.1)
[2023-04-21] MEDS: INSULIN LISPRO 100 UNIT/1 ML 3ML VIAL SQ SCH ×4 (07:30→21:00)
[2023-04-21 11:27] LABS: HEPATITIS B SURFACE AG (P) Negative; HEPATITIS C ANTIBODY Non Reactive
[2023-04-22] VITALS: BP 126/68; PULSE 70; RESP 18; TEMP 98.6; O2SAT 98
[2023-04-22 04:00] VITALS: BP 115/69; PULSE 71; RESP 18; TEMP 97.9; O2SAT 98
[2023-04-22 07:13] VITALS: PULSE 90; RESP 20; O2SAT 97
[2023-04-22] MEDS: INSULIN LISPRO 100 UNIT/1 ML 3ML VIAL SQ SCH ×3 (07:30→16:30)
[2023-04-22 08:50] VITALS: BP 115/69; PULSE 90; RESP 20; TEMP 97.9; O2SAT 97
[2023-04-22 12:00] VITALS: BP 136/71; PULSE 68; RESP 19; TEMP 98; O2SAT 100
[2023-04-22 16:00] VITALS: BP 125/71; PULSE 75; RESP 19; TEMP 97.8; O2SAT 98
== END 2023-04-22 18:44 | disposition home or self-care (01) | DRG 439 ==
LOC: ER 12:16 → ERHOLD 15:39 → MED/SURG 17:04
PROVIDERS: ADMIT Internal Medicine; ATTEND Internal Medicine
DX: K85.90 Acute pancreatitis without necrosis or infection, unspecified (principal); E87.20 Acidosis, unspecified; N17.9 Acute kidney failure, unspecified; K86.1 Other chronic pancreatitis; E86.0 Dehydration; I25.10 Atherosclerotic heart disease of native coronary artery without angina pectoris; E11.9 Type 2 diabetes mellitus without complications; I10 Essential (primary) hypertension; M19.90 Unspecified osteoarthritis, unspecified site; E78.5 Hyperlipidemia, unspecified; K57.90 Diverticulosis of intestine, part unspecified, without perforation or abscess without bleeding; Z96.651 Presence of right artificial knee joint; Z95.5 Presence of coronary angioplasty implant and graft; Z85.72 Personal history of non-Hodgkin lymphomas; Z79.4 Long term (current) use of insulin; Z79.82 Long term (current) use of aspirin; Z79.84 Long term (current) use of oral hypoglycemic drugs; Z79.899 Other long term (current) drug therapy; I25.2 Old myocardial infarction; Z92.21 Personal history of antineoplastic chemotherapy; Z20.822 Contact with and (suspected) exposure to COVID-19
CPT/HCPCS: 36415; 74176; 74181; 78227; 80053; 81001; 82248; 82550; 82948; 83036; 83690; 83735; 84100; 84155; 84439; 84443; 84484; 85025; 85610; 85730; 87086; 93005; 94799; 99284; A9537; J2405; J2543; J7030; Q9967; U0002